=== PATIENT | female | born 1955 | race Caucasian/White ===

== ENCOUNTER → 2018-06-15 | Outpatient (CLI) | payer BC ==
--- NOTE | 2018-06-15 08:02 | MR ---
EXAMINATION TYPE: MR knee RT wo con DATE OF EXAM: 06/15/2018 COMPARISON: Outside right knee x-ray April 30, 2018 HISTORY: Right knee pain per order. Inner knee pain for couple months per patient. TECHNIQUE: Multiplanar, multisequence images of the knee is performed without IV contrast. FINDINGS: MEDIAL MENISCUS: Anterior horn is intact without tear. Oblique increased signal posterior horn extend s to inferior articular surface with some irregularity sagittal images 8 and 9. LATERAL MENISCUS: Horizontal increased signal central body of lateral meniscus is seen, does not dist inctly extend to articular surface. Cannot exclude intrasubstance tear. CRUCIATE LIGAMENTS: The anterior and posterior cruciate ligaments are intact and unremarkable. COLLATERAL LIGAMENTS: The medial collateral ligament and lateral collateral ligament complex are inta ct. Mild fluid signal surrounds medial collateral ligament fibers. EXTENSOR MECHANISM: Visualized quadriceps and patellar tendons are intact. EFFUSION: There is tiny to small suprapatellar joint effusion with areas of synovitis suspected as th ere is curvilinear diminished signal noted. POPLITEAL CYST: No popliteal/haque cyst. Medial to this there popliteal vessel there is 3.0 cm in le ngth multi septated cyst probable ganglion cyst coronal image 27 TRICOMPARTMENT SPACES: Moderate joint space loss with mild spurring patellofemoral compartment is see n. There is mild medial tibiofemoral compartment joint space loss. There is mild spurring lateral and medial tibial femoral compartments with tibial condylar spurring. CARTILAGE: Chondromalacia patella is present with significant fissuring and areas of full-thickness c artilaginous loss along the lateral aspect of the patellar pole. There is thinning of articular carti sujatha medial aspect medial tibiofemoral compartment. BONE MARROW SIGNAL: There is heterogeneous increased T2 signal involving the medial tibial plateau wi th small focus low T1 signal coronal image 19. This is best appreciated axial image 5. In addition th ere is some reactive T2 signal involving posterior aspect superior patellar pole seen best coronal im age 4. OTHER: No additional significant abnormality is appreciated. IMPRESSION: 1. Oblique full-thickness tear posterior horn of medial meniscus. 2. Fairly moderate osteoarthritic changes involving patellofemoral and medial tibiofemoral compartmen ts. 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 Focal subchondral os seous contusion and/or bone marrow edema is noted involving the medial tibial plateau. 3. Mild MCL sprain injury. 4. Small to tiny suprapatellar joint effusion with underlying synovitis. 5. Multiseptated small popliteal ganglion cyst.
== END | disposition home or self-care (01) ==
LOC: RADMRIMAIN 06:36
PROVIDERS: ATTEND Orthopaedic Surgery
DX: S83.241A Other tear of medial meniscus, current injury, right knee, initial encounter (principal); M17.11 Unilateral primary osteoarthritis, right knee; S83.411A Sprain of medial collateral ligament of right knee, initial encounter; M22.41 Chondromalacia patellae, right knee; M65.861 Other synovitis and tenosynovitis, right lower leg

== ENCOUNTER → 2018-10-14 | Outpatient (CLI) | payer BC ==
[2018-10-14 12:25] LABS: Basophils # (A) 0.1 k/uL (0-0.2); Basophils % (A) 1 %; Eosinophils # (A) 0.5 k/uL (0-0.7); Eosinophils % (A) 6 %; HCT 43.2 % (34.0-46.0); HGB 13.9 gm/dL (11.4-16.0); Lymphocytes # (A) 2.8 k/uL (1.0-4.8); Lymphocytes % (A) 31 %; MCH 30.8 pg (25.0-35.0); MCHC 32.2 g/dL (31.0-37.0); MCV 95.5 fL (80.0-100.0); Mean Platelet Volume 7.1; Monocytes # (A) 0.4 k/uL (0-1.0); Monocytes % (A) 4 %; Neutrophils # (A) 5.2 k/uL (1.3-7.7); Neutrophils % (A) 57 %; Platelet Count 280 k/uL (150-450); RBC 4.53 m/uL (3.80-5.40); RDW 14.2 % (11.5-15.5); WBC 9.2 k/uL (3.8-10.6)
[2018-10-14 12:43] LABS: Potassium 4.2 mmol/L (3.5-5.1)
== END | disposition home or self-care (01) ==
LOC: LABPAT 11:45
PROVIDERS: ATTEND Orthopaedic Surgery
DX: Z01.818 Encounter for other preprocedural examination (principal); Z01.812 Encounter for preprocedural laboratory examination; M23.91 Unspecified internal derangement of right knee
CPT/HCPCS: 36415; 80051; 85025; 93005

== ENCOUNTER 2018-10-23 06:08 | Day surgery (SDC) | payer BC ==
[2018-10-16 11:40] VITALS: BMI 42.6
--- NOTE | 2018-10-22 09:06 | HP ---
HISTORY AND PHYSICAL CHIEF COMPLAINT: Right knee pain. 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 She notes medial and lateral pain along with swelling and giving way. She is having problems with walking and stairs. She was recently seen [facility] for this. PAST MEDICAL HISTORY: Significant for type 2 diabetes and hypertension. PAST SURGICAL HISTORY: Significant for previous cholecystectomy and foot surgery. CURRENT MEDICATIONS: 1. Actos. 2. Glimepiride. 3. Lotrel. She denies drug allergies. FAMILY HISTORY: Unknown. SOCIAL HISTORY: Significant for 3/4 pack per day tobacco use. 16 POINT REVIEW OF SYSTEMS: Otherwise reviewed and is noncontributory. PHYSICAL EXAMINATION: On examination, the patient is approximately 5 foot 6, 264 pounds of endomorphic habitus. HEENT exam is nonfocal. Neck is supple. She has painless passive motion of the right hip. Straight leg raise is negative. Active motion right knee -8 to 80 degrees of flexion. She has a moderate effusion. She is tender about the medial joint line, greater than lateral. Collaterals are stable, Nany is negative, Cali's elicits medial pain. She has genu varum alignment. Her distal neurovascular exam appears to be intact in the right lower extremity. X-rays to include weightbearing, notch, lateral and Merchant views of the right knee obtained in the office show moderate medial compartment narrowing. MRI report 06/15/2018 of the right knee shows a posterior medial meniscal tear along with degenerative changes along the medial patellofemoral compartments. IMPRESSION: 1. Right knee internal derangement with symptomatic medial meniscal tear. 2. Right knee moderate medial compartment osteoarthrosis. 3. Increased body mass index. RECOMMENDATIONS: I talked to the patient at length regarding her condition and treatment options. At this point, she is quite symptomatic and opts to proceed with surgery. We will plan to proceed with arthroscopic evaluation with probable partial medial meniscectomy. Risks and benefits were discussed at length in layman's terms. We will likely perform that as an outpatient procedure. MMODL / IJN: [id number] /
[~2018-10-23 06:08] MED LIST: DEXAMETHASONE SOD PHOSPHATE 10 MG/ML 1 ML VIAL IV ONE; LACTATED RINGERS 1,000 ML IV SCH; LIDOCAINE 1% 20 ML VIAL (10MG/ML) FOR IV START INTRADERMA PRN; MIDAZOLAM 2 MG/2 ML VIAL IV PRN; ceFAZolin IN SWFI 2 GM/20 ML SYRINGE IVP ONE; fentaNYL (PF) 50 MCG/ML 2 ML AMP IV PRN
[2018-10-23 07:28] LABS: Glucose,Whole Blood 120 mg/dL (75-99)
[2018-10-23] MEDS ORDERED: ONDANSETRON 4 MG/2 ML VIAL IVP ONE (07:30)
[2018-10-23 07:36] VITALS: RESP 16; TEMP 97.4
[2018-10-23] MEDS ORDERED: PROPOFOL 10 MG/ML 20 ML VIAL IV ONE (07:46)
[2018-10-23] MEDS ORDERED: SUCCINYLCHOLINE CHLORIDE 100 MG/5 ML SYR IV ONE (07:46)
[2018-10-23] MEDS ORDERED: fentaNYL (PF) 50 MCG/ML 2 ML AMP ONE (07:46)
[2018-10-23] MEDS ORDERED: MIDAZOLAM 2 MG/2 ML VIAL ONE (07:46)
[2018-10-23] MEDS ORDERED: LIDOCAINE 1% INJ 10MG/ML (20 ML MDV) ONE (07:46)
--- NOTE | 2018-10-23 08:58 | P.OP ---
Date of Procedure: 10/23/18 Preoperative Diagnosis: Right knee internal derangement Postoperative Diagnosis: Right knee posterior medial meniscal tear/grade 3 chondral injury distal medial femoral condyle Procedure(s) Performed: Right knee arthroscopic partial medial meniscectomy/medial femoral chondrectomy/microfracture medial femoral condyle Anesthesia: VLAD Surgeon: González Shaikh Estimated Blood Loss (ml): 10 Pathology: none sent Condition: stable Disposition: PACU Indications for Procedure: The patient's a 62-year-old female who presents with progressive right knee pain and mechanical symptoms despite conservative measures. A discussion of the risks and benefits of operative intervention versus continued conservative measures was made with the patient. She opted to proceed with surgery. Operative risks to include infection, neurovascular injury, development of blood clots, possible incomplete resolution of symptoms, possible worsening of symptoms and need for subsequent procedures was discussed. Informed consent was obtained. Operative Findings: As below Description of Procedure: The patient was brought to the operating room, and after induction of general anesthesia examined the right knee. Collaterals were stable, Nany was negative, and posterior drawer was negative. The right lower extremity was prepped and draped in a normal fashion. A superior lateral portal was made through a 3 mm skin incision superior and lateral to the patella. This was used for outflow. A lateral portal was made through a 5 mm vertical skin incision lateral to the patella tendon above the joint line. Diagnostic arthroscopy was performed. On inspection of the medial compartment a complex tear involving the posterior horn of the medial meniscus in the white-white junction was noted.. This was debrided back to stable base with straight baskets and a motorized shaver. A grade 3 chondral injury was noted involving the distal medial portion of the medial femoral condyle measuring 1.5 cm x 1.5 cm. There was a loose cho ndral fragment debrided back to stable base with a motorized shaver. Microfracture was performed with a chondral or reaching the subchondral surface down to the bone marrow elements. On inspection of the notch, the anterior cruciate ligament appeared to be intact. On inspection of the lateral compartment no significant cartilage or meniscal pathology was noted. On inspection of the patellofemoral articulation there was grade 2-3 chondral changes diffusely however no loose chondral fragments. The gutters were clear debris. The knee was then thoroughly irrigated. The portals were closed with Steri-Strips. A sterile dressing was applied in addition to a compression stocking. The patient was awoken from general anesthesia and transferred to recovery room in good condition. Blood loss was estimated at 10 mL. No complications were incurred.
[2018-10-23] MEDS ORDERED: HYDROcodone/APAP 5-325MG 1 EACH TAB PO ONE (09:48)
[2018-10-23 09:51] LABS: Glucose,Whole Blood 164 mg/dL (75-99)
[2018-10-23 10:00] VITALS: PULSE 82
[2018-10-23 10:26] VITALS: BP 132/85
== END 2018-10-23 10:48 | disposition home or self-care (01) ==
LOC: OR 06:08
PROVIDERS: ATTEND Orthopaedic Surgery
DX: M23.321 Other meniscus derangements, posterior horn of medial meniscus, right knee (principal); M23.8X1 Other internal derangements of right knee; F17.210 Nicotine dependence, cigarettes, uncomplicated; M17.11 Unilateral primary osteoarthritis, right knee; E66.01 Morbid (severe) obesity due to excess calories; E11.9 Type 2 diabetes mellitus without complications; I10 Essential (primary) hypertension; Z79.84 Long term (current) use of oral hypoglycemic drugs; Z79.899 Other long term (current) drug therapy; Z91.040 Latex allergy status; Z68.41 Body mass index [BMI] 40.0-44.9, adult
CPT/HCPCS: 29881; 29879; J2250; J1100; J2405; J2001; J3010; J0330; J2704; J0690

== ENCOUNTER → 2019-01-22 | Outpatient (CLI) | payer BC ==
--- NOTE | 2019-01-22 09:08 | MR ---
EXAMINATION TYPE: MR knee LT wo con DATE OF EXAM: 01/22/2019 COMPARISON: X-ray dated 12/17/2018 HISTORY: Pain in left knee TECHNIQUE: Multiplanar, multisequence imaging of the left knee is performed without IV contrast. FINDINGS: MEDIAL MENISCUS: There is a complex tear involving the posterior horn and body of the medial meniscus . LATERAL MENISCUS: Linear intrasubstance signal most typical mucoid degeneration. CRUCIATE LIGAMENTS: The anterior and posterior cruciate ligaments are intact and unremarkable. COLLATERAL LIGAMENTS: The medial collateral ligament and lateral collateral ligament complex are inta ct and unremarkable. EXTENSOR MECHANISM: Visualized quadriceps and patellar tendons are intact. EFFUSION: There is a moderate-sized suprapatellar bursal fluid collection. POPLITEAL CYST: No popliteal/haque cyst. TRICOMPARTMENT SPACES: Narrowing of the medial compartment of the knee joint and patellofemoral joint noted. There is a 1 cm area of grade III chondromalacia involving the articular medial femoral carti sujatha. No definite free fragment. There is fibrillation and chondromalacia grade 3 involving the patellar cartilage. BONE MARROW SIGNAL: There is an area of marrow edema or contusion involving the medial tibial plateau . IMPRESSION: 1. Complex tear posterior horn and body medial meniscus 2. Moderate-sized suprapatellar bursal fluid collection 3. Osteoarthritis with chondromalacia as discussed above. 4. There is a 1.2 cm bone contusion or reactive marrow edema involving the medial tibial plateau.
== END ==
LOC: RADMRIMAIN 08:09
PROVIDERS: ATTEND Orthopaedic Surgery
DX: S83.232A Complex tear of medial meniscus, current injury, left knee, initial encounter (principal); M17.12 Unilateral primary osteoarthritis, left knee; M22.42 Chondromalacia patellae, left knee

== ENCOUNTER → 2019-05-05 | Outpatient (CLI) | payer BC ==
[2019-05-05 14:48] LABS: Basophils # (A) 0.2 k/uL (0-0.2); Basophils % (A) 2 %; Eosinophils # (A) 0.5 k/uL (0-0.7); Eosinophils % (A) 7 %; HCT 40.5 % (34.0-46.0); HGB 13.3 gm/dL (11.4-16.0); Lymphocytes % (A) 26 %; MCH 32.4 pg (25.0-35.0); MCHC 32.8 g/dL (31.0-37.0); MCV 98.8 fL (80.0-100.0); Mean Platelet Volume 7.1; Monocytes # (A) 0.4 k/uL (0-1.0); Monocytes % (A) 5 %; Neutrophils # (A) 4.5 k/uL (1.3-7.7); Neutrophils % (A) 58 %; Platelet Count 224 k/uL (150-450); RDW 13.9 % (11.5-15.5); WBC 7.8 k/uL (3.8-10.6)
[2019-05-05 15:33] LABS: Potassium 4.3 mmol/L (3.5-5.1)
== END ==
LOC: LABPAT 11:49
PROVIDERS: ATTEND Orthopaedic Surgery
DX: Z01.812 Encounter for preprocedural laboratory examination (principal); M23.92 Unspecified internal derangement of left knee
CPT/HCPCS: 36415; 80051; 85025

== ENCOUNTER 2019-05-14 07:36 | Day surgery (SDC) | payer BC ==
[2019-05-11 16:30] VITALS: BMI 40.7
--- NOTE | 2019-05-13 09:52 | HP ---
HISTORY AND PHYSICAL CHIEF COMPLAINT: Left knee pain. 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 She notes pain with twisting and prolonged walking. She has intermittent giving way. She has been taking anti-inflammatories with only partial temporary relief. PAST MEDICAL HISTORY: Significant for type 2 diabetes, hypertension. PAST SURGICAL HISTORY: Significant for previous right knee arthroscopy, cholecystectomy and foot surgery. CURRENT MEDICATIONS: 1. Actos. 2. Glimepiride. 3. Lotrel. She denies drug allergies. FAMILY HISTORY: Unknown. SOCIAL HISTORY: Significant for 3/4 pack per day tobacco use. 16 POINT REVIEW OF SYSTEMS: Otherwise reviewed and is noncontributory. PHYSICAL EXAMINATION: On examination, the patient is approximately 5 foot 6, 264 pounds of endomorphic habitus. HEENT: Exam is nonfocal. Neck is supple. She has painless passive motion of the left hip. Straight leg raise is negative. Active motion left knee -14 to 110 degrees of flexion. She has a moderate effusion. She is tender about the medial joint line. Collaterals are stable, Nany is negative, Cali's elicits medial pain. Her distal neurovascular exam appears to be intact in the left lower extremity. MRI report left knee from 01/22/2019 shows a posterior medial meniscal tear along with medial compartment degenerative changes. There appears to be a chondral defect involving the distal medial femoral condyle. IMPRESSION: Left knee internal derangement with symptomatic medial meniscal tear. RECOMMENDATIONS: I talked to the patient at length regarding her condition along with treatment options. At this point, she is quite symptomatic and limited because of pain and mechanical symptoms despite conservative measures. After thorough discussion, she opts to proceed with surgery. We will plan to proceed with arthroscopic evaluation of the left knee with possible partial medial meniscectomy in addition to possible microfracture of the medial femoral condyle. We will likely perform that as an outpatient procedure. Risks and benefits were discussed at length in layman's terms. MMODL / IJN: [id number] /
[~2019-05-14 07:36] MED LIST changes: +ONDANSETRON 4 MG/2 ML VIAL IVP ONE; +SCOPOLAMINE 1.5MG/72HR PATCH TRANSDERM ONE; -ceFAZolin IN SWFI 2 GM/20 ML SYRINGE IVP ONE; -fentaNYL (PF) 50 MCG/ML 2 ML AMP IV PRN
[2019-05-14 08:17] LABS: Glucose,Whole Blood 146 mg/dL (75-99)
[2019-05-14] MEDS ORDERED: fentaNYL (PF) 50 MCG/ML 2 ML AMP ONE (09:26)
[2019-05-14] MEDS ORDERED: MIDAZOLAM 2 MG/2 ML VIAL ONE (09:26)
[2019-05-14] MEDS ORDERED: KETAMINE 10 MG/ML 20 ML VIAL ONE (09:26)
[2019-05-14] MEDS ORDERED: SUCCINYLCHOLINE CHLORIDE 100 MG/5 ML SYR IV ONE (09:26)
[2019-05-14] MEDS ORDERED: LIDOCAINE 1% INJ 10MG/ML (20 ML MDV) ONE (09:26)
[2019-05-14] MEDS ORDERED: PROPOFOL 10 MG/ML 20 ML VIAL IV ONE (09:26)
[2019-05-14] MEDS ORDERED: EPINEPHrine (PF) 1 ML in SODIUM CHLORIDE 0.9% IRRIGATIO 3,000 ML IRRIGATION ONE ×2 (09:55→09:56)
--- NOTE | 2019-05-14 10:35 | P.OP ---
Date of Procedure: 05/14/19 Preoperative Diagnosis: left knee internal derangement Postoperative Diagnosis: Left knee posterior medial meniscal tear/grade 3 chondral injury Procedure(s) Performed: Left knee arthroscopic partial medial meniscectomy/medial femoral chondrectomy/microfracture medial femoral condyle Anesthesia: LYNNA Surgeon: González Shaikh Estimated Blood Loss (ml): 10 Pathology: none sent Condition: stable Disposition: PACU Indications for Procedure: The patient is a 63-year-old female who presents with progressive/persistent left knee pain and mechanical symptoms despite conservative measures. A discussion of the risks and benefits of operative intervention versus continued conservative measures was made with patient. She opted to proceed with surgery. Operative risks to include infection, neurovascular injury, development of blood clots, possible incomplete resolution of symptoms, possible worsening symptoms and need for subsequent procedures was discussed. Informed consent was obtained. Operative Findings: As below Description of Procedure: The patient was brought to the operating room, and after induction of general anesthesia examined the left knee. Collaterals were stable, Nany was negative, and posterior drawer was negative. The left lower extremity was prepped and draped in a normal fashion. A superior lateral portal was made through a 3 mm skin incision superior and lateral to the patella. This was used for outflow. A lateral portal was made through a 5 mm vertical skin incision lateral to the patella tendon above the joint line. Diagnostic arthroscopy was performed. On inspection of the medial compartment, a complex oblique tear involving the posterior horn of the medial meniscus was noted in the white-red junction.. This was debrided back to stable base with straight baskets and a motorized shaver. A corresponding grade 3 chondral injury was noted involving the posterior central portion of the medial femoral condyle. There was a loose chondral fragment debrided back to stable base with a motorized shaver. Microfracture was performed with a power pick breaching the subchondral surface down to the bone marrow elements. On inspection of the notch, the anterior cruciate ligament appeared to be intact. On inspection of the lateral compartment minimal degenerative changes were noted. No definite meniscal tear was noted.. On inspection of the patellofemoral articulation there was chondral cartilage however no loose chondral fragments.. The gutters were clear debris. The knee was then thoroughly irrigated. The portals were closed with Steri-Strips. A sterile dressing was applied in addition to a compression stocking. The patient was awoken from general anesthesia and transferred to recovery room in good condition. Blood loss was estimated at 10 mL. No complications were incurred.
[2019-05-14 10:37] VITALS: TEMP 97
[2019-05-14 10:42] LABS: Glucose,Whole Blood 187 mg/dL (75-99)
[2019-05-14] MEDS: HYDROmorphone 0.5 MG/0.5 ML SYRINGE IVP PRN ×2 (10:44→10:50)
[2019-05-14 11:12] VITALS: RESP 18
[2019-05-14 11:47] VITALS: BP 137/78; PULSE 78
== END 2019-05-14 11:57 | disposition home or self-care (01) ==
LOC: OR 07:36
PROVIDERS: ATTEND Orthopaedic Surgery
DX: S83.242A Other tear of medial meniscus, current injury, left knee, initial encounter (principal); S83.32XA Tear of articular cartilage of left knee, current, initial encounter; X58.XXXA Exposure to other specified factors, initial encounter; E11.9 Type 2 diabetes mellitus without complications; I10 Essential (primary) hypertension; Z79.84 Long term (current) use of oral hypoglycemic drugs; Z79.899 Other long term (current) drug therapy; Z90.49 Acquired absence of other specified parts of digestive tract; Z97.2 Presence of dental prosthetic device (complete) (partial); Z72.0 Tobacco use; E66.01 Morbid (severe) obesity due to excess calories; Z68.41 Body mass index [BMI] 40.0-44.9, adult; Z91.040 Latex allergy status
CPT/HCPCS: 29881; 29879; J2250; J1100; J0690; J2405; J0171; J2001; J3010; J0330; J2704; J1170

== ENCOUNTER 2020-03-30 18:53 | Inpatient (IN) | payer BC ==
[2020-03-30] MEDS ORDERED: SODIUM CHLORIDE 0.9% 1,000 ML IV ONE (19:14)
--- NOTE | 2020-03-30 19:18 | ED ---
SOB HPI - General Source: patient, family, RN notes reviewed, old records reviewed Mode of arrival: ambulatory Limitations: no limitations <Xenia Bills - Last Filed: 03/30/20 22:24> <Joshua Zuniga - Last Filed: 03/30/20 23:52> - General Chief Complaint: Shortness of Breath Stated Complaint: Poss Flu Time Seen by Provider: 03/30/20 19:03 - History of Present Illness Initial Comments: Patient is a 64-year-old female, with history of diabetes smoker and hypertension. She presents emergency department today with difficulty in breathing dry cough, body aches starting on Friday. Patient reports she recently [place] to the [facility]. She is with friends and family. Patient states she's had no significant history of positive contacts with coated virus. She reports that she still smoker. Patient reports her cough has been nonproductive. She plans of a poor appetite in general fatigue. She states that she's been sleeping 20 hours a day. (Xenia Bills) - Related Data Home Medications Medication Instructions Recorded Confirmed Cyanocobalamin (Vitamin B-12) 1,000 mcg PO DAILY 10/16/18 03/30/20 [Vitamin B-12] Glimepiride [Amaryl] 4 mg PO BID 10/16/18 03/30/20 Multivitamins, Thera [Multivitamin 1 tab PO DAILY 10/16/18 03/30/20 (formulary)] Pioglitazone [Actos] 30 mg PO DAILY 10/16/18 03/30/20 amLODIPine BESYLATE/BENAZEPRIL 1 cap PO DAILY 10/16/18 03/30/20 [Lotrel 10-20 MG] Vit C/E/Zn/Coppr/Lutein/Zeaxan 1 cap PO DAILY 03/30/20 03/30/20 [Preservision Areds 2 Softgel] Allergies Allergy/AdvReac Type Severity Reaction Status Date / Time latex Allergy Rash/REDNES Verified 03/30/20 22:21 S Review of Systems ROS Other: All systems not noted in ROS Statement are negative. <Xenia Bills - Last Filed: 03/30/20 22:24> ROS Other: All systems not noted in ROS Statement are negative. <Joshua Zuniga - Last Filed: 09/10/20 23:52> ROS Statement: Those systems with pertinent positive or pertinent negative responses have been documented in the HPI. Past Medical History Past Medical History: Diabetes Mellitus, Hypertension, Osteoarthritis (OA) History of Any Multi-Drug Resistant Organisms: None Reported Past Surgical History: Cholecystectomy, Tonsillectomy Additional Past Surgical History / Comment(s): RIGHT GREAT TOE, BUNIONECTOMY, Past Anesthesia/Blood Transfusion Reactions: No Reported Reaction Past Psychological History: No Psychological Hx Reported Smoking Status: Current every day smoker Past Alcohol Use History: Rare Past Drug Use History: None Reported - Past Family History Mother Family Medical History: Unable to Obtain Additional Family Medical History / Comment(s): ADOPTED <Xenia Bills - Last Filed: 03/30/20 22:24> General Exam Limitations: no limitations General appearance: alert, in no apparent distress Head exam: Present: atraumatic, normocephalic, normal inspection Eye exam: Present: normal appearance, PERRL, EOMI. Absent: scleral icterus, conjunctival injection, periorbital swelling ENT exam: Present: normal exam, normal oropharynx, mucous membranes moist Neck exam: Present: normal inspection. Absent: tenderness, meningismus, lymphadenopathy Respiratory exam: Present: normal lung sounds bilaterally, wheezes (wheezing). Absent: respiratory distress, rales, rhonchi, stridor Cardiovascular Exam: Present: regular rate, normal rhythm, normal heart sounds. Absent: systolic murmur, diastolic murmur, rubs, gallop, clicks GI/Abdominal exam: Present: soft, normal bowel sounds. Absent: distended, tenderness, guarding, rebound, rigid Extremities exam: Present: normal inspection, full ROM, normal capillary refill. Absent: tenderness, pedal edema, joint swelling, calf tenderness Back exam: Present: normal inspection Neurological exam: Present: alert, oriented X3, CN II-XII intact Psychiatric exam: Present: normal affect, normal mood Skin exam: Present: warm, dry, intact, normal color. Absent: rash <Xenia Bills - Last Filed: 03/30/20 22:24> - General Exam Comments Initial Comments: 64-year-old female. Alert and oriented 3. (Xenia Bills) Course Vital Signs 03/30/20 03/30/20 03/30/20 18:57 21:09 21:20 Temperature 98.5 F Pulse Rate 98 93 98 Respiratory 22 Rate Blood Pressure 144/80 O2 Sat by Pulse 90 L Oximetry 03/30/20 03/30/20 21:45 22:45 Temperature 98.6 F 98.7 F Pulse Rate 98 98 Respiratory 18 18 Rate Blood Pressure 132/68 134/84 O2 Sat by Pulse 94 L 96 Oximetry Medical Decision Making - Lab Data Result diagrams: 03/30/20 19:30 03/30/20 19:30 - Radiology Data Radiology results: report reviewed <Xenia Bills - Last Filed: 03/30/20 22:24> - Lab Data Result diagrams: 03/30/20 19:30 03/30/20 19:30 <Joshua Zuniga - Last Filed: 03/30/20 23:52> - Medical Decision Making 64-year-old female presents today with worsening shortness of breath or cough. Symptoms progressed over the past week. She's been feeling very fatigued. She recently traveled from the [facility]. At this time patient's chest x-ray shows diffuse interstitial infiltrates. Patient was tested for Covid and had cold protocol labs completed. Has an elevated lactic acid and C or P. White blood cell, 10. She is afebrile at this time her cough is nonproductive. CT chest was completed for positive d-dimer and shows no evidence of pulmonary embolism but does use an full interstitial infiltrates concern for RDS. Patient be started on Solu-Medrol Rocephin and azithromycin. I discussed the case with Dr. Zuniga. Patient was admitted at this time. Consults pulmonology. Coronavirus testing is pending. She has been requiring supplement oxygen she initially arrived 88-90% on room air and was given 2-3 L now at 93%. (Xenia Bills) I saw this patient in conjunction with the physician assistant banquet manager. I performed independent history and physical exam. Agree with case management. (Joshua Lance) - Lab Data Lab Results 03/30/20 03/30/20 03/30/20 Range/Units 19:30 19:30 19:30 WBC 10.8 H (3.8-10.6) k/uL RBC 4.08 (3.80-5.40) m/uL Hgb 12.2 (11.4-16.0) gm/dL Hct 38.8 (34.0-46.0) % MCV 95.2 (80.0-100.0) fL MCH 30.0 (25.0-35.0) pg MCHC 31.5 (31.0-37.0) g/dL RDW 13.7 (11.5-15.5) % Plt Count 273 (150-450) k/uL Neutrophils % 70 % Lymphocytes % 17 % Monocytes % 4 % Eosinophils % 6 % Basophils % 1 % Neutrophils # 7.6 (1.3-7.7) k/uL Lymphocytes # 1.9 (1.0-4.8) k/uL Monocytes # 0.5 (0-1.0) k/uL Eosinophils # 0.7 (0-0.7) k/uL Basophils # 0.1 (0-0.2) k/uL Hypochromasia Slight PT 10.2 (9.0-12.0) sec INR 1.0 (<1.2) APTT 27.5 (22.0-30.0) sec D-Dimer 1.16 H (<0.60) mg/L FEU Sodium 138 (137-145) mmol/L Potassium 3.9 (3.5-5.1) mmol/L Chloride 103 (98-107) mmol/L Carbon Dioxide 28 (22-30) mmol/L Anion Gap 7 mmol/L BUN 12 (7-17) mg/dL Creatinine 0.79 (0.52-1.04) mg/dL Est GFR (CKD-EPI)AfAm >90 (>60 ml/min/1.73 sqM) Est GFR (CKD-EPI)NonAf 81 (>60 ml/min/1.73 sqM) Glucose 114 H (74-99) mg/dL Plasma Lactic Acid Brandon (0.7-2.0) mmol/L Calcium 8.9 (8.4-10.2) mg/dL Magnesium 2.2 (1.6-2.3) mg/dL Total Bilirubin 0.8 (0.2-1.3) mg/dL AST 37 H (14-36) U/L ALT 16 (4-34) U/L Alkaline Phosphatase 103 (38-126) U/L Lactate Dehydrogenase 1071 H (313-618) U/L Troponin I (0.000-0.034) ng/mL C-Reactive Protein 139.2 H (<10.0) mg/L NT-Pro-B Natriuret Pep pg/mL Total Protein 6.9 (6.3-8.2) g/dL Albumin 3.7 (3.5-5.0) g/dL 03/30/20 03/30/20 03/30/20 Range/Units 19:30 19:30 20:07 WBC (3.8-10.6) k/uL RBC (3.80-5.40) m/uL Hgb (11.4-16.0) gm/dL Hct (34.0-46.0) % MCV (80.0-100.0) fL MCH (25.0-35.0) pg MCHC (31.0-37.0) g/dL RDW (11.5-15.5) % Plt Count (150-450) k/uL Neutrophils % % Lymphocytes % % Monocytes % % Eosinophils % % Basophils % % Neutrophils # (1.3-7.7) k/uL Lymphocytes # (1.0-4.8) k/uL Monocytes # (0-1.0) k/uL Eosinophils # (0-0.7) k/uL Basophils # (0-0.2) k/uL Hypochromasia PT (9.0-12.0) sec INR (<1.2) APTT (22.0-30.0) sec D-Dimer (<0.60) mg/L FEU Sodium (137-145) mmol/L Potassium (3.5-5.1) mmol/L Chloride (98-107) mmol/L Carbon Dioxide (22-30) mmol/L Anion Gap mmol/L BUN (7-17) mg/dL Creatinine (0.52-1.04) mg/dL Est GFR (CKD-EPI)AfAm (>60 ml/min/1.73 sqM) Est GFR (CKD-EPI)NonAf (>60 ml/min/1.73 sqM) Glucose (74-99) mg/dL Plasma Lactic Acid Brandon 1.1 (0.7-2.0) mmol/L Calcium (8.4-10.2) mg/dL Magnesium (1.6-2.3) mg/dL Total Bilirubin (0.2-1.3) mg/dL AST (14-36) U/L ALT (4-34) U/L Alkaline Phosphatase (38-126) U/L Lactate Dehydrogenase (313-618) U/L Troponin I <0.012 (0.000-0.034) ng/mL C-Reactive Protein (<10.0) mg/L NT-Pro-B Natriuret Pep 184 pg/mL Total Protein (6.3-8.2) g/dL Albumin (3.5-5.0) g/dL - Radiology Data Chest x-ray shows pulmonary edema consistent with acute congestive heart failure. Interstitial pneumonia not excluded.No evidence of pulmonary and wasn't. Extensive interstitial airspace infiltrates in both lungs could relate to RDS. Mild mediastinal and bronchial adenopathy. (Xenia Bills) Disposition Is patient prescribed a controlled substance at d/c from ED?: No Time of Disposition: 22:28 <Xenia Bills - Last Filed: 03/30/20 22:24> <Joshua Zuniga - Last Filed: 03/30/20 23:52> Clinical Impression: Hypoxia, Pulmonary infiltrate Disposition: ADMITTED IP TO THIS HOSP
[2020-03-30 19:46] LABS: Basophils # (A) 0.1 k/uL (0-0.2); Basophils % (A) 1 %; Eosinophils # (A) 0.7 k/uL (0-0.7); Eosinophils % (A) 6 %; HCT 38.8 % (34.0-46.0); HGB 12.2 gm/dL (11.4-16.0); Hypochromasia Slight; Lymphocytes # (A) 1.9 k/uL (1.0-4.8); Lymphocytes % (A) 17 %; MCHC 31.5 g/dL (31.0-37.0); MCV 95.2 fL (80.0-100.0); Mean Platelet Volume 7.4; Monocytes # (A) 0.5 k/uL (0-1.0); Monocytes % (A) 4 %; Neutrophils # (A) 7.6 k/uL (1.3-7.7); Neutrophils % (A) 70 %; Platelet Count 273 k/uL (150-450); RBC 4.08 m/uL (3.80-5.40); RDW 13.7 % (11.5-15.5); WBC 10.8 k/uL (3.8-10.6)
--- NOTE | 2020-03-30 19:51 | XR ---
EXAMINATION TYPE: XR chest 1V portable DATE OF EXAM: 03/30/2020 COMPARISON: NONE HISTORY: Cough and short of breath TECHNIQUE: FINDINGS: Heart is enlarged. There is pulmonary edema. There is no definite pleural effusion. There a re no hilar masses. IMPRESSION: Pulmonary edema consistent with acute congestive heart failure. Interstitial pneumonia no t excluded.
[2020-03-30 19:52] LABS: ALT 16 U/L (4-34); AST 37 U/L (14-36); African American GFR (CKD) >90 (>60 ml/min/1.73 sqM); Albumin 3.7 g/dL (3.5-5.0); Alkaline Phosphatase 103 U/L (38-126); Anion Gap 7 mmol/L; Blood Urea Nitrogen 12 mg/dL (7-17); Calcium 8.9 mg/dL (8.4-10.2); Carbon Dioxide 28 mmol/L (22-30); Chloride 103 mmol/L (98-107); Glucose 114 mg/dL (74-99); LDH 1071 U/L (313-618); Magnesium 2.2 mg/dL (1.6-2.3); Non-African American GFR(CKD) 81 (>60 ml/min/1.73 sqM); Potassium 3.9 mmol/L (3.5-5.1); Sodium 138 mmol/L (137-145); Total Bilirubin 0.8 mg/dL (0.2-1.3); Total Protein 6.9 g/dL (6.3-8.2)
[2020-03-30 20:08] LABS: C Reactive Protein 139.2 mg/L (<10.0)
[2020-03-30] MEDS ORDERED: ALBUTEROL NEBULIZED 2.5 MG/3 ML INHALATION STA (20:42)
[2020-03-30 20:45] LABS: Partial Thromboplastin Time 27.5 sec (22.0-30.0); Prothrombin Time 10.2 sec (9.0-12.0)
[2020-03-30 20:48] LABS: D-Dimer 1.16 mg/L FEU (<0.60)
--- NOTE | 2020-03-30 22:02 | CT ---
EXAMINATION TYPE: CT chest angio for PE DATE OF EXAM: 03/30/2020 COMPARISON: None HISTORY: Shortness of breath, cough. CT DLP: 736.7 mGycm Automated exposure control for dose reduction was used. CONTRAST: Performed with IV Contrast, patient injected with 100 mL of Isovue 370. There are 3-D post processed images. There is extensive patchy interstitial and airspace infiltrates throughout the lungs. There is patchy groundglass density. There is no pleural effusion. Heart is slightly enlarged. There is no pericardi al effusion. There are a few bilateral bronchial lymph nodes measuring up to 1 cm. I see no filling defect in the pulmonary arteries. Thoracic aorta is intact. There is no aneurysm or dissection. There are a few paratracheal and mediastinal lymph nodes measuring up to 1 cm. There is s purring in the thoracic spine. I see no bony destructive process. Heart size is fairly normal. There is no pleural effusion. IMPRESSION: No evidence of pulmonary embolism. Extensive interstitial and airspace infiltrates in both lungs that could relate to RDS. Mild mediasti nal and bronchial adenopathy.
[2020-03-30] MEDS ORDERED: cefTRIAXone IN SWFI 1,000 MG/10 ML SYRINGE IVP STA (22:19)
[2020-03-30] MEDS ORDERED: methylPREDNISolone SOD SUCCI 125 MG/2 ML VIAL IV STA (22:19)
[2020-03-30] MEDS ORDERED: AZITHROMYCIN 500 MG in SODIUM CHLORIDE 0.9% 250 ML IVPB STA (22:20)
[2020-03-30] MEDS ORDERED: KETOROLAC 15 MG/ML 1 ML VIAL IVP PRN (22:29)
[2020-03-30] MEDS ORDERED: MORPHINE SULFATE 4 MG/ML SYRINGE IV PRN (22:29)
[2020-03-30] MEDS ORDERED: NALOXONE 0.4 MG/ML 1 ML VIAL IV PRN (22:29)
[2020-03-30] MEDS ORDERED: ACETAMINOPHEN TAB 325 MG TAB PO PRN (22:29)
[2020-03-30] MEDS ORDERED: ONDANSETRON 4 MG/2 ML VIAL IVP PRN (22:29)
[2020-03-30] MEDS ORDERED: IBUPROFEN 400 MG TAB PO PRN (22:29)
[2020-03-30] MEDS: SODIUM CHLORIDE 0.9% 1,000 ML IV SCH (23:52)
[2020-03-31] MEDS: SODIUM CHLORIDE 0.9% 1,000 ML IV SCH ×2 (05:46→17:45)
[2020-03-31 06:14] LABS: Glucose,Whole Blood 294 mg/dL (75-99)
[2020-03-31] MEDS: lisinopriL 20 MG TAB PO SCH (08:42)
[2020-03-31] MEDS: CYANOCOBALAMIN 500 MCG TAB PO SCH (08:42)
[2020-03-31] MEDS: MULTIVITAMINS, THERA 1 EACH TAB PO SCH (08:42)
[2020-03-31] MEDS: PIOGLITAZONE 30 MG TAB PO SCH (08:42)
[2020-03-31] MEDS: GLIMEPIRIDE 4 MG TAB PO SCH ×2 (08:42→21:14)
[2020-03-31] MEDS ORDERED: PANTOPRAZOLE 40 MG/10 ML VIAL IV SCH (09:00)
[2020-03-31] MEDS ORDERED: amLODIPine 10 MG TAB PO SCH (09:00)
[2020-03-31] MEDS ORDERED: NON FORMULARY DRUG (Vit C/E/Zn/Coppr/Lutein/Zeaxan [Preservision Areds 2 Softgel] 1 EACH C PO SCH (09:00)
[2020-03-31] MEDS ORDERED: IPRATROPIUM-ALBUTEROL 3 ML NEB INHALATION PRN (10:16)
--- NOTE | 2020-03-31 10:58 | P.HPIM ---
History of Present Illness 62-year-old pleasant female came in with complaints of shortness of breath and cough and generalized body aches going on since Friday. Patient return home yesterday from a [facility]. Patient denied any recent contacts with known coronary respirations. Patient had a CAT scan of the chest which showed diffuse groundglass opacities and extensive interstitial malaise. He is a central infiltrates consistent with RDS with the mediastinal and bronchial adenopathy. COVID 19 testing is pending. She denied orthopnea paroxysmal nocturnal dyspnea patient denied any fever. Patient does smoke about three fourths pack of cigarettes a day patient did have wheezing. Patient was having some cough without any sputum production, patient was also complaining of pleuritic chest pain whenever she coughs. Patient is negative for pulmonary embolism on the CAT scan Review of Systems REVIEW OF SYSTEMS: CONSTITUTIONAL: No fever, no malaise, no fatigue. HEENT: No recent visual problems or hearing problems. Denied any sore throat. CARDIOVASCULAR: No orthopnea, PND, no palpitations, no syncope. PULMONARY: no hemoptysis. GASTROINTESTINAL: No diarrhea, no nausea, no vomiting, no abdominal pain. NEUROLOGICAL: No headaches, no weakness, no numbness. HEMATOLOGICAL: Denies any bleeding or petechiae. GENITOURINARY: Denies any burning micturition, frequency, or urgency. MUSCULOSKELETAL/RHEUMATOLOGICAL: Denies any joint pain, swelling, or any muscle pain. ENDOCRINE: Denies any polyuria or polydipsia. The rest of the 14-point review of systems is negative. Past Medical History Past Medical History: Diabetes Mellitus, Hypertension, Osteoarthritis (OA) Additional Past Medical History / Comment(s): Macular degeneration History of Any Multi-Drug Resistant Organisms: None Reported Past Surgical History: Cholecystectomy, Tonsillectomy Additional Past Surgical History / Comment(s): RIGHT GREAT TOE, BUNIONECTOMY Past Anesthesia/Blood Transfusion Reactions: No Reported Reaction Past Psychological History: No Psychological Hx Reported Smoking Status: Current every day smoker Past Alcohol Use History: Rare Additional Past Alcohol Use History / Comment(s): STARTED SMOKING AT AGE 20 SMOKES 1/2 PPD Past Drug Use History: None Reported - Past Family History Mother Family Medical History: Unable to Obtain Additional Family Medical History / Comment(s): ADOPTED Medications and Allergies Home Medications Medication Instructions Recorded Confirmed Type Cyanocobalamin (Vitamin B-12) 1,000 mcg PO DAILY 10/16/18 03/30/20 History [Vitamin B-12] Glimepiride [Amaryl] 4 mg PO BID 10/16/18 03/30/20 History Multivitamins, Thera [Multivitamin 1 tab PO DAILY 10/16/18 03/30/20 History (formulary)] Pioglitazone [Actos] 30 mg PO DAILY 10/16/18 03/30/20 History amLODIPine BESYLATE/BENAZEPRIL 1 cap PO DAILY 10/16/18 03/30/20 History [Lotrel 10-20 MG] Vit C/E/Zn/Coppr/Lutein/Zeaxan 1 cap PO DAILY 03/30/20 03/30/20 History [Preservision Areds 2 Softgel] Allergies Allergy/AdvReac Type Severity Reaction Status Date / Time latex Allergy Rash/REDNES Verified 03/30/20 22:21 S Physical Exam Vitals: Vital Signs Temp Pulse Pulse Resp BP BP Pulse Ox 03/31/20 04:00 98 20 134/63 90 L 03/31/20 00:15 98.3 F 102 H 20 143/70 90 L 03/31/20 00:00 98.3 F 99 102 H 20 153/80 143/70 90 L 03/30/20 22:45 98.7 F 98 18 134/84 96 03/30/20 21:45 98.6 F 98 18 132/68 94 L 03/30/20 21:20 98 03/30/20 21:09 93 03/30/20 18:57 98.5 F 98 22 144/80 90 L Intake and Output 03/30/20 03/31/20 03/31/20 22:59 06:59 14:59 Intake Total 1320 Balance 1320 Intake: Oral 1320 Other: # Voids 1 1 Weight 118.841 kg 119.8 kg PHYSICAL EXAMINATION: GENERAL: The patient is alert and oriented x3, not in any acute distress. Well developed, well nourished. HEENT: Pupils are round and equally reacting to light. EOMI. No scleral icterus. No conjunctival pallor. Normocephalic, atraumatic. No pharyngeal erythema. No thyromegaly. CARDIOVASCULAR: S1 and S2 present. No murmurs, rubs, or gallops. PULMONARY: Wheezing in the lung bases , and some rhonchi ABDOMEN: Soft, nontender, nondistended, normoactive bowel sounds. No palpable organomegaly. MUSCULOSKELETAL: No joint swelling or deformity. EXTREMITIES: No cyanosis, clubbing, or pedal edema. NEUROLOGICAL: Gross neurological examination did not reveal any focal deficits. SKIN: No rashes. Note: Because of COVID 19 isolation, some of the history and physical exam findings or indirect and obtained from nursing staff, and other physician examinations to avoid unnecessary contact with the patient. Results CBC & Chem 7: 03/30/20 19:30 03/30/20 19: Labs: Abnormal Lab Results - Last 24 Hours (Table) 03/30/20 03/30/20 03/30/20 Range/Units 19:30 :: WBC 10.8 H (3.8-10.6) k/uL D-Dimer 1.16 H (<0.60) mg/L FEU Glucose 114 H (74-99) mg/dL POC Glucose (mg/dL) (75-99) mg/dL AST 37 H (14-36) U/L Lactate Dehydrogenase 1071 H (313-618) U/L C-Reactive Protein 139.2 H (<10.0) mg/L Procalcitonin (0.02-0.09) ng/mL 03/30/20 03/31/20 Range/Units 19:30 06:12 WBC (3.8-10.6) k/uL D-Dimer (<0.60) mg/L FEU Glucose (74-99) mg/dL POC Glucose (mg/dL) 294 H (75-99) mg/dL AST (14-36) U/L Lactate Dehydrogenase (313-618) U/L C-Reactive Protein (<10.0) mg/L Procalcitonin 0.13 H (0.02-0.09) ng/mL Thrombosis Risk Factor Assmnt - Choose All That Apply Each Risk Factor Represents 2 Points: Age 61-74 years Thrombosis Risk Factor Assessment Total Risk Factor Score: 2 Thrombosis Risk Factor Assessment Level: Low Risk Assessment and Plan Plan: -Acute hypoxic respiratory failure: Possibly of atypical pneumonia or covid 19 pneumonitis, patient is presently on 3 L of Cardizem does have some wheeze on e xam. Continue with antibiotic ceftriaxone and azithromycin for pneumonia for now. Awaiting testing for coronavirus. -COPD with mild acute exacerbation patient will be started on inhalational treatments alliteration of starting patient on Decadron 2 pulmonology -Type 2 diabetes mellitus: Patient resumed on home regimen along with sliding scale -Hypertension patient was started on her calcium channel adrián and DEONNA inhibitor -GI prophylaxis with Protonix and DVT prophylaxis with Lovenox.
[2020-03-31 11:36] VITALS: RESP 18
[2020-03-31 11:49] LABS: Glucose,Whole Blood 361 mg/dL (75-99)
[2020-03-31] MEDS: INSULIN ASPART (NovoLOG) 100 UNIT/ML VIAL SQ SCH ×3 (12:16→21:14)
[2020-03-31] MEDS: IPRATROPIUM-ALBUTEROL 3 ML NEB INHALATION SCH ×3 (12:39→21:25)
--- NOTE | 2020-03-31 14:10 | P.CNPUL ---
History of Present Illness Consult date: 03/31/20 Reason for consult: pneumonia History of present illness: 65-year-old female patient, a smoker with known history of diabetes, hypertension, presented to the hospital because a few days of increasing shortness of breath and cough and generalized body aches. She has been up [place] and she denies having any exposure to individuals with confirmed coronavirus COVID 19 infection. The patient denies having any pleurisy. No hemoptysis. No recurrent pneumonias. No history of asthma. No significant lymphedema. No 72 chronic pulmonary disease or disorders. She does not utilize any form of respiratory medications or inhalers. Her white cell count was at 10.8. No lymphopenia. Her CRP level is 139. LDH level is 1071. LFTs are within normal limits. Pro-calcitonin level is at 0.13. CAT scan of the chest was significantly abnormal and there was extensive interstitial and airspace infiltrates in both lungs with some limited mediastinal lymphadenopathy. The patient is currently in droplet isolation. She was started on examination R ocephin and Zithromax as an empiric antibiotic coverage. Covid 19 nasal swab was sent and the results are still pending for now. She is currently on 4 L of oxygen by nasal cannula with a pulse oximeter is 94%. Hemodynamically stable. No skin rashes. No change in taste or smell. Altered mentation. No nausea vomiting or diarrhea. No gastrointestinal symptoms. Review of Systems Constitutional: Reports fatigue, Reports lethargy, Reports weakness Eyes: denies as per HPI, denies blurred vision, denies bulging eye, denies decre ased vision, denies diplopia, denies discharge, denies dry eye, denies irritation, denies itching, denies pain, denies photophobia, denies loss of peripheral vision, denies loss of vision, denies tunnel vision/blind spots Ears: deny: decreased hearing, ear discharge, earache, tinnitus Breasts: absent: as per HPI, change in shape, gynecomastia, masses, nipple discharge, pain, skin changes, swelling Cardiovascular: Reports decreased exercise tolerance, Reports dyspnea on exertion Respiratory: Reports cough, Reports dyspnea Gastrointestinal: Reports as per HPI Genitourinary: Reports as per HPI Menstruation: Reports as per HPI Musculoskeletal: absent: ankle pain, ankle stiffness, ankle swelling, as per HPI, elbow pain, elbow stiffness, elbow swelling, foot pain, foot stiffness, foot swelling, hand pain, hand stiffness, hand swelling, hip pain, hip stiffness, hip swelling, knee pain, knee stiffness, knee swelling, shoulder pain, shoulder stiffness, shoulder swelling, wrist pain, wrist stiffness, wrist swelling Integumentary: Reports as per HPI Neurological: Reports as per HPI Psychiatric: Reports as per HPI Endocrine: Reports fatigue Hematologic/Lymphatic: Reports as per HPI Allergic/Immunologic: Reports as per HPI Past Medical History Past Medical History: Diabetes Mellitus, Hypertension, Osteoarthritis (OA) Additional Past Medical History / Comment(s): Macular degeneration History of Any Multi-Drug Resistant Organisms: None Reported Past Surgical History: Cholecystectomy, Tonsillectomy Additional Past Surgical History / Comment(s): RIGHT GREAT TOE, BUNIONECTOMY Past Anesthesia/Blood Transfusion Reactions: No Reported Reaction Past Psychological History: No Psychological Hx Reported Smoking Status: Current every day smoker Past Alcohol Use History: Rare Additional Past Alcohol Use History / Comment(s): STARTED SMOKING AT AGE 20 SMOKES 1/2 PPD Past Drug Use History: None Reported - Past Family History Mother Family Medical History: Unable to Obtain Additional Family Medical History / Comment(s): ADOPTED Medications and Allergies Home Medications Medication Instructions Recorded Confirmed Type Cyanocobalamin (Vitamin B-12) 1,000 mcg PO DAILY 10/16/18 03/30/20 History [Vitamin B-12] Glimepiride [Amaryl] 4 mg PO BID 10/16/18 03/30/20 History Multivitamins, Thera [Multivitamin 1 tab PO DAILY 10/16/18 03/30/20 History (formulary)] Pioglitazone [Actos] 30 mg PO DAILY 10/16/18 03/30/20 History amLODIPine BESYLATE/BENAZEPRIL 1 cap PO DAILY 10/16/18 03/30/20 History [Lotrel 10-20 MG] Vit C/E/Zn/Coppr/Lutein/Zeaxan 1 cap PO DAILY 03/30/20 03/30/20 History [Preservision Areds 2 Softgel] Allergies Allergy/AdvReac Type Severity Reaction Status Date / Time latex Allergy Rash/REDNES Verified 03/30/20 22:21 S Physical Exam Vitals: Vital Signs Temp Pulse Pulse Resp BP BP Pulse Ox 03/31/20 12:57 89 09/11/20 12:42 88 03/31/20 08:00 98.3 F 90 18 123/59 94 L 03/31/20 04:00 98 20 134/63 90 L 03/31/20 00:15 98.3 F 102 H 20 143/70 90 L 03/31/20 00:00 98.3 F 99 102 H 20 153/80 143/70 90 L 03/30/20 22:45 98.7 F 98 18 134/84 96 03/30/20 21:45 98.6 F 98 18 132/68 94 L 03/30/20 21:20 98 03/30/20 21:09 93 03/30/20 18:57 98.5 F 98 22 144/80 90 L Intake and Output 03/30/20 03/31/20 03/31/20 22:59 06:59 14:59 Intake Total 1320 Balance 1320 Intake: Oral 1320 Other: Voiding Method Toilet # Voids 1 1 Weight 118.841 kg 119.8 kg The patient appeared well nourished and normally developed. Vital signs as documented. Head exam is unremarkable. No scleral icterus or corneal arcus noted. Neck is without jugular venous distension, thyromegaly, or carotid bruits. Carotid upstrokes are brisk bilaterally. Lungs are clear to auscultation and percussion. Cardiac and lung bases are present bilaterally. Cardiac exam reveals the PMI to be normally sized and situated. Rhythm is regular. First and second heart sounds normal. No murmurs, rubs or gallops. Abdominal exam reveals normal bowel sounds, no masses, no organomegaly and no aortic enlargement. Extremities are nonedematous and both femoral and pedal pulses are normal.Examination of the skin revealed no evidence of significant rashes, suspicious appearing nevi or other concerning lesions. Neurologically the patient is awake and alert and is no focal neurological deficit. Results - Laboratory Findings CBC and BMP: 03/30/20 19:30 03/30/20 19:30 PT/INR, D-dimer PT 10.2 sec (9.0-12.0) 03/30/20 19:30 INR 1.0 (<1.2) 03/30/20 19:30 D-Dimer 0.96 mg/L FEU (<0.60) H 03/31/20 10:45 Abnormal lab findings: Abnormal Labs 03/30/20 03/30/20 03/30/20 19:30 19:30 19:30 WBC 10.8 H D-Dimer 1.16 H Glucose 114 H POC Glucose (mg/dL) AST 37 H Lactate Dehydrogenase 1071 H C-Reactive Protein 139.2 H Procalcitonin 03/30/20 03/31/20 03/31/20 19:30 06:12 10:45 WBC D-Dimer 0.96 H Glucose POC Glucose (mg/dL) 294 H AST Lactate Dehydrogenase C-Reactive Protein Procalcitonin 0.13 H 03/31/20 11:48 WBC D-Dimer Glucose POC Glucose (mg/dL) 361 H AST Lactate Dehydrogenase C-Reactive Protein Procalcitonin - Diagnostic Findings Chest x-ray: image reviewed CT scan - chest: image reviewed Assessment and Plan Plan: 1 acute bilateral pneumonia, consider viral pneumonia including the possibility of coronavirus Covid 19 pneumonitis. Consider other pathologies including the pneumonias/bacterial pneumonias. 2 acute hypoxic respiratory failure secondary to above 3 small mediastinal lymph nodes, nonpathologic 4 chronic smoker 5 diabetes mellitus type 2 6 hypertension Plan Awaiting the coronavirus Covid 19 nasal swab by PCR Put the patient on droplet isolation Sputum Gram stain and culture if able to collect Blood cultures Oxygen At 4 Liters per minute nasal cannula to be titrated to maintain a saturation above 90% IV fluids with normal saline today to 100 mL an hour Antibiotic coverage and accommodation Rocephin and Zithromax We'll continue to follow.
[2020-03-31 16:55] LABS: Glucose,Whole Blood 184 mg/dL (75-99)
[2020-03-31 20:08] LABS: Glucose,Whole Blood 191 mg/dL (75-99)
[2020-03-31] MEDS ORDERED: AZITHROMYCIN 500 MG TAB PO SCH (21:00)
[2020-03-31 22:54] LABS: C Reactive Protein 10.4 mg/dL (0.0-0.8)
[2020-04-01] MEDS: SODIUM CHLORIDE 0.9% 1,000 ML IV SCH ×2 (01:52→12:58)
[2020-04-01 06:20] LABS: Glucose,Whole Blood 126 mg/dL (75-99)
[2020-04-01] MEDS: INSULIN ASPART (NovoLOG) 100 UNIT/ML VIAL SQ SCH ×3 (06:30→16:53)
[2020-04-01 06:49] LABS: HCT 34.4 % (34.0-46.0); HGB 10.9 gm/dL (11.4-16.0); Hypochromasia Slight; MCH 30.4 pg (25.0-35.0); MCHC 31.7 g/dL (31.0-37.0); MCV 95.8 fL (80.0-100.0); Mean Platelet Volume 7.4; Platelet Count 277 k/uL (150-450); RBC 3.59 m/uL (3.80-5.40); RDW 13.5 % (11.5-15.5); WBC 15.1 k/uL (3.8-10.6)
[2020-04-01 07:06] LABS: Calcium 8.8 mg/dL (8.4-10.2); Potassium 3.8 mmol/L (3.5-5.1)
[2020-04-01] MEDS ORDERED: PANTOPRAZOLE 40 MG TABLET PO SCH (07:30)
[2020-04-01] MEDS: IPRATROPIUM-ALBUTEROL 3 ML NEB INHALATION SCH ×3 (08:57→16:09)
[2020-04-01] MEDS ORDERED: amLODIPine 5 MG TAB PO SCH (09:00)
[2020-04-01] MEDS ORDERED: ENOXAPARIN 40 MG/0.4 ML SYRINGE SQ SCH (09:00)
[2020-04-01] MEDS: CYANOCOBALAMIN 500 MCG TAB PO SCH (09:34)
[2020-04-01] MEDS: lisinopriL 20 MG TAB PO SCH (09:34)
[2020-04-01] MEDS: MULTIVITAMINS, THERA 1 EACH TAB PO SCH (09:34)
[2020-04-01] MEDS: GLIMEPIRIDE 4 MG TAB PO SCH (09:35)
--- NOTE | 2020-04-01 09:49 | P.DS ---
Providers Date of admission: 03/30/20 23:24 Attending physician: Peter Sousa Consults: 03/30/20 22:29 Consult Physician Stat Consulting Provider: Stefania Higuera Consult Reason/Comments: pulmonary infiltrate, possible carvalho Do you want consulting provider notified?: Yes Primary care physician: Jo Mendez [facility] Course: 62-year-old pleasant female came in with complaints of shortness of breath and cough and generalized body aches going on since Friday. Patient return home yesterday from a [facility]. Patient denied any recent contacts with known coronary respirations. Patient had a CAT scan of the chest which showed diffuse groundglass opacities and extensive interstitial malaise. He is a central infiltrates consistent with RDS with the mediastinal and bronchial adeno ronda. COVID 19 testing is pending. She denied orthopnea paroxysmal nocturnal dyspnea patient denied any fever. Patient does smoke about three fourths pack of cigarettes a day patient did have wheezing. Patient was having some cough without any sputum production, patient was also complaining of pleuritic chest pain whenever she coughs. Patient is negative for pulmonary embolism on the CAT scan. 04/01/2020 Patient is feeling better wheezing resolved patient's Covid 19 testing was negative. Patient wanted to go home will admit the patient if she is saturating okay and if of pulmonary clears her patient will be discharged on levofloxacin for 7 days stating for possible atypical pneumonia, patient appears to have acute respiratory distress syndrome although clinically doing really well. And insisting on discharge. Patient will be given prescription for inhaled steroids and the albuterol along with levofloxacin PHYSICAL EXAMINATION: GENERAL: The patient is alert and oriented x3, not in any acute distress. Obese HEENT: Pupils are round and equally reacting to light. EOMI. No scleral icterus. No conjunctival pallor. Normocephalic, atraumatic. No pharyngeal erythema. No thyromegaly. CARDIOVASCULAR: S1 and S2 present. No murmurs, rubs, or gallops. PULMONARY: Chest is clear to auscultation, no wheezing or crackles. ABDOMEN: Soft, nontender, nondistended, normoactive bowel sounds. No palpable organomegaly. MUSCULOSKELETAL: No joint swelling or deformity. EXTREMITIES: No cyanosis, clubbing, or pedal edema. NEUROLOGICAL: Gross neurological examination did not reveal any focal deficits. SKIN: No rashes. Assessment and Plan Plan: -Acute hypoxic respiratory failure: Possibly of atypical pneumonia or viral, ruled out covid 19 pneumonitis, patient is saturating well on 2 L will be naproxen and if she saturates okay upon ablation without oxygen patient will be discharged as per her request -COPD with mild acute exacerbation improved just with albuterol ipratropium patient will be discharged on inhaled steroids and albuterol, nicotine cessation counseling was provided -Type 2 diabetes mellitus: Continue her home regimen -Hypertension Plan - Discharge Summary Discharge Rx Participant: Yes New Discharge Prescriptions: New Fluticasone/Salmeterol [Advair 250-50 Diskus] 1 inhalation PO BID #1 inhaler Levofloxacin [Levaquin] 500 mg PO DAILY #7 tab Albuterol Inhaler [Ventolin Hfa Inhaler] 2 puff INHALATION RT-QID PRN #1 inhaler PRN Reason: Shortness Of Breath Or Wheezing Continue amLODIPine BESYLATE/BENAZEPRIL [Lotrel 10-20 MG] 1 cap PO DAILY Glimepiride [Amaryl] 4 mg PO BID Pioglitazone [Actos] 30 mg PO DAILY Multivitamins, Thera [Multivitamin (formulary)] 1 tab PO DAILY Cyanocobalamin (Vitamin B-12) [Vitamin B-12] 1,000 mcg PO DAILY Vit C/E/Zn/Coppr/Lutein/Zeaxan [Preservision Areds 2 Softgel] 1 cap PO DAILY Discharge Medication List Cyanocobalamin (Vitamin B-12) [Vitamin B-12] 1,000 mcg PO DAILY 10/16/18 [History] Glimepiride [Amaryl] 4 mg PO BID 10/16/18 [History] Multivitamins, Thera [Multivitamin (formulary)] 1 tab PO DAILY 10/16/18 [History] Pioglitazone [Actos] 30 mg PO DAILY 10/16/18 [History] amLODIPine BESYLATE/BENAZEPRIL [Lotrel 10-20 MG] 1 cap PO DAILY 10/16/18 [History] Vit C/E/Zn/Coppr/Lutein/Zeaxan [Preservision Areds 2 Softgel] 1 cap PO DAILY 03/30/20 [History] Albuterol Inhaler [Ventolin Hfa Inhaler] 2 puff INHALATION RT-QID PRN #1 inhaler 04/01/20 [Rx] Fluticasone/Salmeterol [Advair 250-50 Diskus] 1 inhalation PO BID #1 inhaler 04/01/20 [Rx] Levofloxacin [Levaquin] 500 mg PO DAILY #7 tab 04/01/20 [Rx] Follow up Appointment(s)/Referral(s): Jo Mendez MD [Primary Care Provider] - 3 Days Discharge Disposition: HOME SELF-CARE
--- NOTE | 2020-04-01 10:41 | XR ---
EXAMINATION TYPE: XR chest 1V DATE OF EXAM: 04/01/2020 CLINICAL HISTORY: Pneumonia TECHNIQUE: Portable upright view of the chest obtained COMPARISON: 03/30/2020 chest radiograph FINDINGS: The cardiomediastinal silhouette is within normal limits for size. There is diffuse pulmon edu edema which is decreased versus 03/30/2020. No pleural effusion or pneumothorax. IMPRESSION: Mildly improved aeration of the bilateral lungs versus 03/30/2020.
[2020-04-01 11:13] VITALS: TEMP 97.9
[2020-04-01 12:01] LABS: Glucose,Whole Blood 266 mg/dL (75-99)
--- NOTE | 2020-04-01 12:31 | P.PN ---
Subjective Progress Note Date: 04/01/20 Principal diagnosis: Acute bilateral pneumonia possibly community-acquired, CoVID 19 pneumonitis ruled out 65-year-old female patient, a smoker with known history of diabetes, hyp ertension, presented to the hospital because a few days of increasing shortness of breath and cough and generalized body aches. She has been up [place] and she denies having any exposure to individuals with confirmed coronavirus COVID 19 infection. The patient denies having any pleurisy. No hemoptysis. No recurrent pneumonias. No history of asthma. No significant lymphedema. No 72 chronic pulmonary disease or disorders. She does not utilize any form of respiratory medications or inhalers. Her white cell count was at 10.8. No lymphopenia. Her CRP level is 139. LDH level is 1071. LFTs are within normal limits. Pro-calcitonin level is at 0.13. CAT scan of the chest was significantly abnormal and there was extensive interstitial and airspace infiltrates in both lungs with some limited mediastinal lymphadenopathy. The patient is currently in droplet isolation. She was started on examination Rocephin and Zithromax as an empiric antibiotic coverage. Covid 19 nasal swab was sent and the results are still pending for now. She is currently on 4 L of oxygen by nasal cannula with a pulse oximeter is 94%. Hemodynamically stable. No skin rashes. No change in taste or smell. Altered mentation. No nausea vomiting or diarrhea. No gastrointestinal symptoms. The patient is seen today 04/01/2020 in follow-up on the selective care unit. He is currently sitting up in a chair at the bedside. Awake and alert in no acute distress. Breathing quite a bit easier today compared to yesterday. She is maintaining O2 saturation in the low 90s on room air. During the 6 minute w alk she did desaturate to 87%. She's been afebrile. Blood culture reveals no growth. White count 15.1. Hemoglobin 10.9. Creatinine 0.83. She remains on ceftriaxone and azithromycin along with bronchodilators. Remains on 0.9 normal saline at 100 ML's per hour. Objective - Vital Signs Vital signs: Vital Signs Temp 97.9 F 04/01/20 08:00 Pulse 105 H 04/01/20 11:30 Resp 18 04/01/20 03:40 BP 124/89 04/01/20 08:00 Pulse Ox 92 L 04/01/20 11:30 Intake & Output 03/31/20 04/01/20 04/01/20 18:59 06:59 18:59 Intake Total 2160 580 Output Total 220 Balance 2160 -220 580 Weight 120.7 kg Intake: Intake, IV Titration 100 Amount Sodium Chloride 0.9% 1, 100 000 ml @ 100 mls/hr IV . Q10H [facility] Rx#:[id number] Oral 2160 480 Output: Urine 220 Other: Voiding Method Toilet Toilet # Voids 2 2 3 # Bowel Movements 1 - Exam The patient appeared well nourished and normally developed. Vital signs as documented. Head exam is unremarkable. No scleral icterus or corneal arcus noted. Neck is without jugular venous distension, thyromegaly, or carotid bruits. Carotid upstrokes are brisk bilaterally. Lungs are with scattered rhonchi. Cardiac exam reveals the PMI to be normally sized and situated. Rhythm is regular. First and second heart sounds normal. No murmurs, rubs or gallops. Abdominal exam reveals normal bowel sounds, no masses, no organomegaly and no aortic enlargement. Extremities are nonedematous and both femoral and pedal pulses are normal.Examination of the skin revealed no evidence of significant rashes, suspicious appearing nevi or other concerning lesions. Neurologically the patient is awake and alert and is no focal neurological deficit. - Labs CBC & Chem 7: 04/01/20 06:26 04/01/20 06:26 Labs: Abnormal Lab Results - Last 24 Hours (Table) 03/31/20 03/31/20 03/31/20 Range/Units 10:45 10:45 16:54 WBC (3.8-10.6) k/uL RBC (3.80-5.40) m/uL Hgb (11.4-16.0) gm/dL Chloride (98-107) mmol/L BUN (7-17) mg/dL Glucose (74-99) mg/dL POC Glucose (mg/dL) 184 H (75-99) mg/dL Lactate Dehydrogenase 343 H (120-246) U/L C-Reactive Protein 10.4 H (0.0-0.8) mg/dL Procalcitonin 0.10 H (0.02-0.09) ng/mL 0904/01/20 04/01/20 Range/Units 20:06 06:19 06:26 WBC 15.1 H (3.8-10.6) k/uL RBC 3.59 L (3.80-5.40) m/uL Hgb 10.9 L (11.4-16.0) gm/dL Chloride (98-107) mmol/L BUN (7-17) mg/dL Glucose (74-99) mg/dL POC Glucose (mg/dL) 191 H 126 H (75-99) mg/dL Lactate Dehydrogenase (120-246) U/L C-Reactive Protein (0.0-0.8) mg/dL Procalcitonin (0.02-0.09) ng/mL 04/01/20 04/01/20 Range/Units 06:26 11:59 WBC (3.8-10.6) k/uL RBC (3.80-5.40) m/uL Hgb (11.4-16.0) gm/dL Chloride 108 H (98-107) mmol/L BUN 23 H (7-17) mg/dL Glucose 110 H (74-99) mg/dL POC Glucose (mg/dL) 266 H (75-99) mg/dL Lactate Dehydrogenase (120-246) U/L C-Reactive Protein (0.0-0.8) mg/dL Procalcitonin (0.02-0.09) ng/mL Microbiology - Last 24 Hours (Table) 03/30/20 19:30 Blood Culture - Preliminary Blood No Growth after 24 hours Assessment and Plan Assessment: 1 acute bilateral pneumonia, consider viral pneumonia, Covid 19 pneumonitis ruled out. Consider other pathologies including atypical pneumonias/bacterial pneumonias. 2 acute hypoxic respiratory failure secondary to above 3 small mediastinal lymph nodes, nonpathologic 4 chronic smoker 5 diabetes mellitus type 2 6 hypertension Plan The patient was seen and evaluated by Dr. Higuera Chest x-ray and labs reviewed Improved and she is quite adamant about going home today Check for possible temporary need for home oxygen She will follow closely in the office early next week for follow-up chest x-ray Complete a course of Levaquin I, the cosigning physician, performed a history & physical examination of the patient. Lungs sounds with bilateral scattered rhonchi. Maintaining good O2 saturations in the 90s on room air. I discussed the assessment and plan of care with my nurse practitioner, Tia Ribeiro. I attest to the above note as dictated by her.
[2020-04-01] MEDS: PIOGLITAZONE 30 MG TAB PO SCH (12:58)
[2020-04-01 14:56] VITALS: BP 145/65
[2020-04-01 16:30] VITALS: PULSE 82
[2020-04-01 16:39] LABS: Glucose,Whole Blood 146 mg/dL (75-99)
== END 2020-04-01 16:54 | disposition home or self-care (01) | DRG 193 ==
LOC: EC 18:53 → 3SCARD 23:24
PROVIDERS: ADMIT Hospitalist; ATTEND Hospitalist
DX: J12.9 Viral pneumonia, unspecified (principal); J96.01 Acute respiratory failure with hypoxia; J44.1 Chronic obstructive pulmonary disease with (acute) exacerbation; J44.0 Chronic obstructive pulmonary disease with (acute) lower respiratory infection; F17.210 Nicotine dependence, cigarettes, uncomplicated; E11.9 Type 2 diabetes mellitus without complications; I10 Essential (primary) hypertension; M19.90 Unspecified osteoarthritis, unspecified site; Z20.828 Contact with and (suspected) exposure to other viral communicable diseases; H35.30 Unspecified macular degeneration; Z79.84 Long term (current) use of oral hypoglycemic drugs; Z91.040 Latex allergy status; Z90.49 Acquired absence of other specified parts of digestive tract; Z90.89 Acquired absence of other organs; Z98.890 Other specified postprocedural states
CPT/HCPCS: 36415; 71045; 71275; 80048; 80053; 82728; 83605; 83615; 83735; 83880; 84145; 84484; 85025; 85027; 85379; 85610; 85730; 86140; 87040; 93005; 94640; 96361; 96374; 96375; 99285